=== PATIENT | male | born 1995 | race African-American/Black ===

== ENCOUNTER 2018-12-15 09:30 | Emergency (ER) | payer MEDICAID ==
[~2018-12-15] VITALS: Ht 180.3 cm; Wt 68.2 kg
[2018-12-15] MEDS ORDERED: ALBU8HFA IH (10:05)
[2018-12-15] MEDS ORDERED: ADV100 IH (10:05)
[2018-12-15 10:20] VITALS: BP 124/72
== END 2018-12-15 12:06 | disposition left against medical advice (07) ==
LOC: EMS 09:33
DX: R68.84 Jaw pain (principal); V49.88XA Car occupant (driver) (passenger) injured in other specified transport accidents, initial encounter; Y93.89 Activity, other specified; Y92.488 Other paved roadways as the place of occurrence of the external cause; Y99.8 Other external cause status; Z79.899 Other long term (current) drug therapy